=== PATIENT | male | born 1950 | race Hispanic/Latino ===

== ENCOUNTER 2018-05-13 05:57 | Emergency (ER) | payer MEDICARE ==
[2018-05-13 06:13] VITALS: TEMP 98.7
--- NOTE | 2018-05-13 06:35 | C.PDOC ---
"History Of Present Illness <Janneth Srerano - Last Filed: 05/13/18 06:51> <Chente Alonso - Last Filed: 05/13/18 09:20> 67 y/o male presents to the ED for evaluation of left lower back pain that began after heavy lifting four days ago. He reports a new onset of hematuria that began today. The patient states the pain is localized with no associated movement/position. He admits to being non compliant with newly prescribed medication for high BP. The patient denies any nausea or vomiting. (Janneth Serrano) History Per: Patient History/Exam Limitations: no limitations Onset/Duration Of Symptoms: Days Current Symptoms Are (Timing): Still Present Associated Symptoms: Back Pain (left lower back pain). denies: Nausea, Vomiting Recent travel outside of the [place]: No <Janneth Serrano - Last Filed: 05/13/18 06:51> <Chente Alonso - Last Filed: 05/13/18 09:20> Time Seen by Provider: 05/13/18 06:34 Chief Complaint (Nursing): Male Genitourinary Past Medical History Reviewed: Historical Data, Nursing Documentation, Vital Signs - Medical History PMH: No Chronic Diseases Other Surgeries: left foot, left leg surgery Family History: States: Unknown Family Hx - Social History Hx Alcohol Use: No Hx Substance Use: No - Immunization History Hx Tetanus Toxoid Vaccination: No Hx Influenza Vaccination: No Hx Pneumococcal Vaccination: No <Janneth Serrano - Last Filed: 05/13/18 06:51> Vital Signs: Last Vital Signs Temp 98.7 F 05/13/18 06:08 Pulse 74 05/13/18 07:04 Resp 16 05/13/18 07:04 BP 156/93 H 05/13/18 07:04 Pulse Ox 99 05/13/18 07:04 Review Of Systems Except As Marked, All Systems Reviewed And Found Negative. Constitutional: Negative for: Fever Gastrointestinal: Negative for: Nausea, Vomiting Genitourinary: Positive for: Hematuria (for one day) Musculoskeletal: Positive for: Back Pain (left lower back pain) <Janneth Serrano - Last Filed: 05/13/18 06:51> Physical Exam - Physical Exam Appears: Non-toxic, No Acute Distress Skin: Normal Color, Warm, Dry Head: Atraumatic, Normacephalic Eye(s): bilateral: PERRL, EOMI Ear(s): Bilateral: Normal Oral Mucosa: Moist Neck: Normal ROM Chest: Symmetrical Cardiovascular: Rhythm Regular, No Murmur Respiratory: Normal Breath Sounds, No Rales, No Rhonchi, No Wheezing, Other ( NARD) Gastrointestinal/Abdominal: Bowel Sounds, Soft, No Tenderness Back: No CVA Tenderness Extremity: Normal ROM Extremity: Bilateral: Atraumatic, Normal Color And Temperature, Normal ROM Pulses: Left Radial: Normal, Right Radial: Normal Neurological/Psych: Oriented x3, Normal Speech <Janneth Serrano - Last Filed: 05/13/18 06:51> ED Course And Treatment O2 Sat by Pulse Oximetry: 96 (RA) Pulse Ox Interpretation: Normal <Janneth Serrano - Last Filed: 05/13/18 06:51> - Laboratory Results Result Diagrams: 05/13/18 06:49 05/13/18 08:02 <Chente Alonso - Last Filed: 05/13/18 09:20> Progress - Data Reviewed Data Reviewed: Lab, Diagnostic imaging, Old records <Janneth Serrano - Last Filed: 05/13/18 06:51> Medical Decision Making <Janneth Serrano - Last Filed: 05/13/18 06:51> <Chente Alonso - Last Filed: 05/13/18 09:20> Medical Decision Making: Impression: 67 y/o male with left lower back pain (4 days) and new onset of hematuria (x1 day) s/p heavy lifting Plan: - CT abd & pelvis -CMP -Lipase -CBC -Urine Culture -UA -Flomax 0.4 mg PO -Toradol 30 mg IV -Trandate 20 mg IV -Lidocaine 139 mg (Janneth Serrano) CT findings EXAM: CT Abdomen and Pelvis Without Intravenous Contrast EXAM DATE/TIME: 05/13/2018 6:35 AM CLINICAL HISTORY: 67 years old, male; Pain; Abdominal pain; Generalized; Additional info: Abd pain HTN hematuria TECHNIQUE: Axial computed tomography images of the abdomen and pelvis without intravenous contrast. 716 images are submitted. Axial reformatted images are submitted in lung and soft tissue windows. All CT scans at this facility use at least one of these dose optimization techniques: automated exposure control; mA and/or kV adjustment per patient size (includes targeted exams where dose is matched to clinical indication); or iterative reconstruction. Coronal and sagittal reformatted images were created and reviewed. COMPARISON: No relevant prior studies available. FINDINGS: Lower thorax: Cardiomegaly with small pericardial effusion. Small hiatal hernia. ABDOMEN: Liver: Fatty liver. Gallbladder and bile ducts: Normal. No calcified stones. No ductal dilation. Pancreas: Normal. No ductal dilation. Spleen: There is peripheral hypodensity in the spleen seen on image 49 series 3. Correlation with clinical data is recommended if splenic infarct or other etiology is clinically suspected. Adrenals: Normal. No mass. Kidneys and ureters: Right renal cortical cyst. Stomach and bowel: Diverticulosis. Moderate amount of stool in the colon. Correlation with patient's clinical history of constipation is recommended. Appendix: Normal appendix. RIMMA RUBIO | Preliminary Radiology Report CONFIDENTIALITY STATEMENT This report is intended only for the use of the referring physician, and only in accordance with law, If you received this in error, call [phone] Page 2 of 2 PELVIS: Bladder: Partially decompressed bladder with bladder wall thickening. Correlation with urinalysis is recommended only if clinical cystitis is suspected. Reproductive: Enlarged prostate. ABDOMEN and PELVIS: Intraperitoneal space: Normal. No free air. No significant fluid collection. Bones/joints: No acute fracture. No dislocation. Soft tissues: There is a fat-containing umbilical hernia. Bilateral inguinal herniation of fat. Posterior back subcutaneous soft tissue nonspecific edema. Vasculature: Normal. No abdominal aortic aneurysm. Lymph nodes: Normal. No enlarged lymph nodes. IMPRESSION: 1. No acute abnormality on this noncontrast CT examination of the abdomen and pelvis . Thank you for allowing us to participate in the care of your patient. [address] findings including but not limited to hypodensity of spleen + umbilical hernia and to f/u w/ primary and surgery, also informed pt of inflammed bladder and enlargened prostate and to f/u w/ urology. Pt endorsed understanding CK unremarkable No constipation per pt No flank pain on my exam after meds No clots in urine, bloody urine is cool-aid colored, given no obstruction, negative CT, normal hgb, resolution of pain, u/l obstruction or AAA. BP improved, clear for d/c home (Chente Alonso) Disposition - Disposition Disposition Time: 07:00 <Janneth Serrano - Last Filed: 05/13/18 06:51> <Chente Alonso - Last Filed: 05/13/18 09:20> - Disposition Condition: STABLE Instructions: Blood in the Urine (Hematuria) in Adults Forms: [facility] (Kinyarwanda) - Clinical Impression Clinical Impression: Hypertension, Hematuria, Low back pain - PA / AUDIO/VIDEO TECHNICIAN / Resident Statement MD/DO has reviewed & agrees with the documentation as recorded. - Scribe Statement The provider has reviewed the documentation as recorded by the Scribe (Dotty Lambert) <Janenth Serrano - Last Filed: 05/13/18 06:51> <Chente Alonso - Last Filed: 05/13/18 09:20> - Scribe Statement All medical record entries made by the Scribe were at my direction and personally dictated by me. I have reviewed the chart and agree that the record accurately reflects my personal performance of the history, physical exam, medical decision making, and the department course for this patient. I have also personally directed, reviewed, and agree with the discharge instructions and disposition. (Janneth Serrano) Physician Patient Turnover Patient Signed Over To: Chente Alonso Handoff Comments: FU CT, LABS DISPO <Janneth Serrano - Last Filed: 05/13/18 06:51>"
[2018-05-13] MEDS ORDERED: SODIUM CHLORIDE 0.9% IV STA (06:36)
[2018-05-13] MEDS ORDERED: Labetalol 25mg/5ml Syringe IVP STA (06:36)
[2018-05-13] MEDS ORDERED: LIDOCAINE IV STA (06:36)
[2018-05-13 06:51] LABS: BASO # 0.1 K/uL (0.0-0.2); BASO % 1.5 % (0.0-2.0); EOS # 0.2 K/uL (0.0-0.7); EOS % 3.3 % (0.0-4.0); HEMOGLOBIN 14.4 g/dL (12.0-18.0); LYMPH # 1.8 K/uL (1.0-4.3); LYMPH % 26.6 % (20.0-40.0); MEAN CELL VOLUME 86.6 fL (80.0-94.0); MEAN CORPUSCULAR HEMOGLOBIN 29.9 pg (27.0-31.0); MEAN CORPUSCULAR HGB CONC 34.5 g/dL (33.0-37.0); MONO # 0.5 K/uL (0.0-0.8); NEUT # 4.2 K/uL (1.8-7.0); NEUT % 61.6 % (50.0-75.0); NRBC % 0.1 % (0.0-2.0); RBC 4.8 Mil/uL (4.40-5.90); RED CELL DISTRIBUTION WIDTH 13.9 % (11.5-14.5); WHITE BLOOD COUNT 6.7 K/uL (4.8-10.8)
[2018-05-13] MEDS ORDERED: Labetalol 5mg/ml (4ml) ONE (06:54)
[2018-05-13 07:06] VITALS: BP 156/93; PULSE 74; RESP 16; O2SAT 99
[2018-05-13 07:06] LABS: URINE BILIRUBIN NEGATIVE (NEGATIVE); URINE BLOOD 2+ (NEGATIVE); URINE CLARITY Hazy (Clear); URINE COLOR Amber (YELLOW); URINE GLUCOSE (UA) NORMAL (Normal); URINE LEUKOCYTE ESTERASE NEG Leu/uL (Negative); URINE PROTEIN 2+ mg/dL (NEGATIVE); URINE UROBILINOGEN NORMAL mg/dL (0.2-1.0)
[2018-05-13 08:58] LABS: ALB/GLOB RATIO 1.3 (1.0-2.1); ALBUMIN 3.7 g/dL (3.5-5.0); ALT/SGPT 18 U/L (21-72); AST/SGOT 14 U/L (17-59); BLOOD UREA NITROGEN 22 mg/dL (9-20); CALCIUM 9.1 mg/dl (8.6-10.4); GFR NON-AFRICAN AMERICAN > 60; LIPASE 55 U/L (23-300)
--- NOTE | 2018-05-13 09:45 | CT ---
Date of service: 05/13/2018 PROCEDURE: CT Abdomen and Pelvis without intravenous contrast HISTORY: Abdominal pain. Hypertension. Hematuria. COMPARISON: None. TECHNIQUE: Multiple contiguous axial images were performed through the abdomen and pelvis without the use of intravenous contrast. Subsequently, sagittal and coronal reformatted images were obtained. Radiation dose: Total exam DLP = one thousand two hundred one mGy-cm. This CT exam was performed using one or more of the following dose reduction techniques: Automated exposure control, adjustment of the mA and/or kV according to patient size, and/or use of iterative reconstruction technique. FINDINGS: LOWER THORAX: Cardiomegaly with small pericardial effusion. Small hiatal hernia. LIVER: Fatty infiltration of the liver. GALLBLADDER AND BILE DUCTS: Unremarkable. PANCREAS: Mild fatty atrophy of the pancreas. SPLEEN: Peripheral 1.3 centimeter low-attenuation lesion in the spleen on series 3, image 49 measuring a Hounsfield unit attenuation of 25, indeterminate. Correlation with multiphasic CT may be helpful for further evaluation if clinically indicated. Correlation with clinical data is recommended if splenic infarct or other etiologies are clinically suspected. Clinical correlation. ADRENALS: Nodular thickening of the adrenal glands. KIDNEYS AND URETERS: Exophytic low-attenuation lesion off the lower pole of the right kidney measuring 2.3 centimeters measuring a Hounsfield unit attenuation of 3 suggestive for a cyst. VASCULATURE: Unremarkable. No aortic aneurysm. BOWEL: Diverticulosis. Moderate amount of stool in the colon. Underdistention of the descending colon. Correlation with patient's clinical history of constipation is recommended. APPENDIX: Unremarkable. Normal appendix. PERITONEUM: Unremarkable. No free fluid. No free air. LYMPH NODES: Unremarkable. No enlarged lymph nodes. BLADDER: Partially decompressed urinary bladder with urinary bladder wall thickening. Correlation with urinalysis is recommended if clinical cystitis is suspected. REPRODUCTIVE: Enlarged prostate. BONES: Degenerative changes in the spine. Bridging sclerosis of the bilateral SI joints. OTHER FINDINGS: Fat containing umbilical hernia. Bilateral inguinal herniation of fat. Posterior back subcutaneous soft tissue nonspecific edema. IMPRESSION: 1. Peripheral 1.3 centimeter low-attenuation lesion in the spleen on series 3, image 49 measuring a Hounsfield unit attenuation of 25, indeterminate. Correlation with multiphasic CT may be helpful for further evaluation if clinically indicated. Correlation with clinical data is recommended if splenic infarct or other etiologies clinically suspected. Clinical correlation. 2. Fatty infiltration of the liver. 3. Exophytic low-attenuation lesion off the lower pole of the right kidney measuring 2.3 centimeters measuring a Hounsfield unit attenuation of 3 suggestive for a cyst. 4. Diverticulosis. Moderate amount of stool in the colon. Underdistention of the descending colon. Correlation with patient's clinical history of constipation is recommended. 5. Partially decompressed urinary bladder with urinary bladder wall thickening. Correlation with urinalysis is recommended if clinical cystitis is suspected. 6. Cardiomegaly with small pericardial effusion. Small hiatal hernia.
== END 2018-05-13 09:51 | disposition home or self-care (01) ==
LOC: C.ER 05:57
DX: M54.5 Low back pain (principal); R31.9 Hematuria, unspecified; I10 Essential (primary) hypertension
CPT/HCPCS: 36415; 74176; 80053; 81001; 82550; 83690; 85025; 87086; 96374; 96375; 99285; J1885; J2001